=== PATIENT | female | born 1995 | race Caucasian/White ===

== ENCOUNTER 2018-11-27 20:53 | Emergency (ER) | payer OTHER ==
[~2018-11-27] VITALS: Ht 152.4 cm; Wt 63.5 kg
[2018-11-27 20:55] VITALS: BP 120/77
--- NOTE | 2018-11-27 20:58 | NUR ---
TO LOBBY A/W BED AMBULATORY
--- NOTE | 2018-11-27 22:21 | NUR ---
PT AMBULATED TO BED 5
[2018-11-27 23:05] VITALS: BP 120/77
--- NOTE | 2018-11-27 23:05 | NUR ---
23 Y/O F PRESENTED TO ED WITH C/O HEADACHE SINCE 1300 S/P MECHANICAL FALL. PER PT "I WAS TOLD THAT I BLACKED OUT." AAOX4. SPEECH CLEAR. BEHAVIOR APPROPIATE. PERRL PRESENT 5/10 PAIN, PRESSURE LIKE AT TEMPLES. PT SELF MEDICATED AT 1500 WITH TYLENOL WITH NO RELIEF. ABRASION NOTED TO R UPPER LIP. ERMD NOTIFIED OF PT STATUS.WILL CONTINUE TO MONITOR.
[2018-11-27] MEDS ORDERED: IBUPROFEN 600 MG TAB PO ONE (23:30)
--- NOTE | 2018-11-28 00:12 | NUR ---
PT TAKEN TO CT VIA W/C
== END 2018-11-28 00:50 | disposition home or self-care (01) ==
LOC: MED 20:53
DX: S09.90XA Unspecified injury of head, initial encounter (principal); R11.0 Nausea; W18.30XA Fall on same level, unspecified, initial encounter; Y93.89 Activity, other specified; Y92.89 Other specified places as the place of occurrence of the external cause; Y99.8 Other external cause status
CPT/HCPCS: 70450; 81025; 99284

== ENCOUNTER 2019-11-04 23:03 | Emergency (ER) | payer OTHER ==
[~2019-11-04] VITALS: Ht 160 cm; Wt 68.0 kg
[2019-11-04 23:27] VITALS: BP 133/84
[2019-11-05 01:11] VITALS: BP 133/84
== END 2019-11-05 01:11 | disposition home or self-care (01) ==
LOC: MED 23:03
DX: S80.861A Insect bite (nonvenomous), right lower leg, initial encounter (principal); W57.XXXA Bitten or stung by nonvenomous insect and other nonvenomous arthropods, initial encounter; Y93.89 Activity, other specified; Y92.89 Other specified places as the place of occurrence of the external cause; Y99.8 Other external cause status
CPT/HCPCS: 99283

== ENCOUNTER 2022-01-29 17:29 | Emergency (ER) | payer OTHER ==
--- NOTE | 2022-01-29 18:15 | NUR ---
CALLED X1. NO SHOW Addendum: 01/29/22 at 1829 by [facility] PATIENT LEFT WITHOUT BEING SEEN BY DR. ARROYO. NO FURTHER CARE PROVIDED FOR PATIENT.
--- NOTE | 2022-01-29 18:28 | NUR ---
CALLED [phone]. NO ANSWERING.
== END 2022-01-29 18:15 | disposition left against medical advice (07) ==
LOC: MED 17:29
DX: M79.644 Pain in right finger(s) (principal); Z53.21 Procedure and treatment not carried out due to patient leaving prior to being seen by health care provider

== ENCOUNTER 2023-07-12 18:29 | Emergency (ER) | payer OTHER ==
[~2023-07-12] VITALS: Ht 152.4 cm; Wt 74.8 kg
[2023-07-12 18:36] VITALS: BP 133/82; PULSE 80; RESP 18; TEMP 98; O2SAT 99
[2023-07-12] MEDS ORDERED: SODI15SO OP (19:35)
== END 2023-07-12 19:51 | disposition home or self-care (01) ==
LOC: MED 18:29
DX: H11.32 Conjunctival hemorrhage, left eye (principal)
CPT/HCPCS: 99282; 99283